=== PATIENT | female | born 1940 | race Caucasian/White ===

== ENCOUNTER 2017-08-04 12:48 | Outpatient (CLI) | payer MEDICARE, OTHER ==
--- NOTE | 2017-08-04 14:57 | XRAY Report ---
THREE VIEW RIGHT ELBOW: 08/04/2017 CLINICAL INDICATION: Trauma, pain. FINDINGS: AP, lateral, oblique views of the right elbow demonstrate no evidence of acute fracture or dislocation. Mild osteoarthritis is present. No effusion is seen. No foreign body is seen in the soft tissues. IMPRESSION: MILD OSTEOARTHRITIS. NO EVIDENCE OF FRACTURE. TD: 08/04/2017 14:56
--- NOTE | 2017-08-04 15:00 | XRAY Report ---
THREE VIEW LEFT ANKLE: 08/04/2017 CLINICAL INDICATION: Trauma, pain. FINDINGS: AP, lateral, oblique views of the left ankle demonstrate mild osteoarthritis. Plantar and posterior calcaneal spurring is present. There is no evidence of acute fracture. No effusion is seen. IMPRESSION: OSTEOARTHRITIS. NO EVIDENCE OF ACUTE FRACTURE. TD: 08/04/2017 14:59
== END 2017-08-04 12:49 | disposition home or self-care (01) ==
LOC: DI 12:48
PROVIDERS: ATTEND Nurse Practitioner Family
DX: S99.912A Unspecified injury of left ankle, initial encounter (principal); S59.901A Unspecified injury of right elbow, initial encounter; M19.021 Primary osteoarthritis, right elbow; M19.072 Primary osteoarthritis, left ankle and foot

== ENCOUNTER 2018-10-03 14:31 | Outpatient (CLI) | payer MEDICARE, OTHER ==
--- NOTE | 2018-10-03 15:41 | XRAY Report ---
Reason: PAIN OF RT SHOULDER, PAIN IN RT HIP, LOW BACK PAIN Procedure Date: 10/03/2018 Accession Number: [id number] / [id number] Procedure: XR - Lumbar Spine 2 View CPT Code: FULL RESULT: EXAM: LUMBOSACRAL SPINE RADIOGRAPHY EXAM DATE: 10/03/2018 03:01 PM. CLINICAL HISTORY: COMPARISONS: None. TECHNIQUE: 3 views. FINDINGS: Alignment: There is approximately 1 cm anterolisthesis of L5 on S1. There are approximately 0.4 cm of anterolisthesis of L4 on L5. Bones: Five aeb-ulc-vzwvowx lumbar vertebral bodies are present. Appearance suggestive of superior endplate fracture of T12. Disks: There is endplate sclerosis with disk osteophyte complex formation which is most pronounced at L1-L2 and L2-L3. Facets: Advanced facet arthropathy at L4 and L5, mild to moderate degenerative changes in the remaining lumbar spine. Sacroiliac Joints: Unremarkable. Soft Tissues: Normal. The visualized bowel gas pattern is normal. IMPRESSION: Anterolisthesis at L5-S1 and L4-L5 with suspected pars defects which are not directly visualized. Superior endplate fracture of T12. RADIA
--- NOTE | 2018-10-03 15:46 | XRAY Report ---
Reason: PAIN OF RT SHOULDER, PAIN IN RT HIP, LOW BACK PAIN Procedure Date: 10/03/2018 Accession Number: [id number] / [id number] Procedure: XR - Hip w/Pelvis 2-3V RT CPT Code: FULL RESULT: EXAM: RIGHT HIP RADIOGRAPHY EXAM DATE: 10/03/2018 03:01 PM. CLINICAL HISTORY: Chronic right hip pain for 6 months. No known injury. COMPARISON: None. TECHNIQUE: 2 views. FINDINGS: Bones: Normal. No fractures or bone lesion. Joints: There is moderate joint space narrowing of the femoroacetabular joint, symmetric when compared to the left. Degenerative changes are seen at the pubic symphysis. Sacroiliac joints are congruent. Soft Tissues: Normal. No soft tissue swelling. IMPRESSION: Degenerative hip disease, similar to the left side. RADIA
--- NOTE | 2018-10-03 15:46 | XRAY Report ---
Reason: RIGHT SHOULDER PAIN Procedure Date: 10/03/2018 Accession Number: [id number] / [id number] Procedure: XR - Shoulder 3 View RT CPT Code: FULL RESULT: EXAM: RIGHT SHOULDER RADIOGRAPHY EXAM DATE: 10/03/2018 03:01 PM. CLINICAL HISTORY: Right shoulder injury while working out at the gym 2 weeks ago. COMPARISON: None. TECHNIQUE: 3 views. FINDINGS: Bones: Normal. No fracture or bone lesion. Joints: There are moderate degenerative changes of the acromioclavicular joint. There is a similar degree of degenerative changes at the osseous glenoid. There is no dislocation. Soft tissues: Visualized thorax demonstrates a tortuous aorta. IMPRESSION: AC and glenohumeral joint degenerative changes. RADIA
== END 2018-10-03 14:32 | disposition home or self-care (01) ==
LOC: DI 14:31
PROVIDERS: ATTEND Physician Assistant
DX: M19.011 Primary osteoarthritis, right shoulder (principal); M43.16 Spondylolisthesis, lumbar region; M43.17 Spondylolisthesis, lumbosacral region; M51.86 Other intervertebral disc disorders, lumbar region; M47.9 Spondylosis, unspecified; M16.0 Bilateral primary osteoarthritis of hip
CPT/HCPCS: 72100

== ENCOUNTER 2018-10-10 12:19 | Emergency (ER) | payer MEDICARE, OTHER ==
--- NOTE | 2018-10-10 12:38 | ED Physician Documentation ---
PD HPI SYNCOPE - Stated complaint Stated Complaint: syncope/allergic rx - Chief complaint Chief Complaint: Allergic Rx - History obtained from History obtained from: Patient, Family - History of Present Illness Witnessed: Witnessed Timing - onset: How many minutes ago (30), Today Duration: Minutes (5) Preceding symptoms: Diaphoresis, Light headed, Generalized weakness, Other (she and were walking in park. She got stung (abrupt pain in thumb base dorsally) and noted onset of pain and some mild redness at site. They continued their walk and about 5-10 minutes later, she started to feel lightheaded and then faint. She then got sweaty, pale and her says she fainted. He helped her to the ground, so no fall/impact. He noted redness of thumb base, but not general redness/rash. He says patient seemed to stop breathing, so he gave rescue breaths. He checked pulse and it was still present. He was with her in [place] he wheeler and no passersby. He opted to stay with her few more minutes than to leave her to go for assistance, and she did awaken, and he was able to get her up and walk her slowly back to car and then he drove her here. She has some feeling of difficultly swallowing, but no noted oral edema.). No: Headache, Chest pain, Abdominal pain Contributing factors: Other (stung by bee in dorsal right thumb). No: Recent med change Injury occurred: No: Fell Review of Systems Constitutional: denies: Fever, Chills Nose: denies: Rhinorrhea / runny nose, Congestion Throat: denies: Sore throat (but feeling of tightness in throat) Cardiac: denies: Chest pain / pressure, Palpitations Respiratory: denies: Dyspnea, Cough GI: reports: Nausea. denies: Abdominal Pain, Vomiting, Diarrhea Skin: reports: Lesions (sting swelling dorsum right thumb base) Musculoskeletal: reports: Joint swelling Neurologic: reports: Generalized weakness, Syncope. denies: Difficulty speaking, Altered mental status, Headache, Head injury PD PAST MEDICAL HISTORY - Past Medical History Cardiovascular: None Respiratory: None Neuro: None Endocrine/Autoimmune: None - Present Medications Home Medications: Ambulatory Orders Medication Instructions Recorded Confirmed Cetirizine [ZyrTEC] 10 mg PO DAILY #10 tablet 10/10/18 Dexamethasone [Decadron] 4 mg PO DAILY #5 tablet 10/10/18 EPINEPHrine [Epinephrine] 0.3 mg IJ ONCE PRN #1 auto.injct 10/10/18 Famotidine 20 mg PO DAILY #10 tablet 10/10/18 - Allergies Allergies/Adverse Reactions: Allergies Allergy/AdvReac Type Severity Reaction Status Date / Time No Known Drug Allergies Allergy Verified 10/10/18 12:28 - Living Situation Living Situation: reports: With spouse/s.o. Living Arrangement: reports: At home - Social History Does the pt smoke?: No Does the pt drink ETOH?: No - Family History Family history: reports: Non contributory PD ED PE NORMAL - Vitals Vital signs reviewed: Yes - General General: Alert and oriented X 3, No acute distress, Well developed/nourished - HEENT HEENT: Ears normal, Moist mucous membranes, Pharynx benign - Neck Neck: Supple, no meningeal sign, No adenopathy - Cardiac Cardiac: RRR, No murmur - Respiratory Respiratory: No respiratory distress, Clear bilaterally - Abdomen Abdomen: Normal bowel sounds, Soft, Non tender, Non distended - Derm Derm: Warm and dry, Other (dorsum right thumb with redness and swelling, with lymphangitis streak running up hand/forearm to mid forearm level. No generalized rash. ) - Extremities Extremities: No tenderness to palpate, Normal ROM s pain, No edema, No calf tenderness / cord - Neuro Neuro: Alert and oriented X 3, No motor deficit, Normal speech Eye Opening: Spontaneous Motor: Obeys Commands Verbal: Oriented GCS Score: 15 - Psych Psych: Normal mood Results - Vitals Vitals: Vital Signs - 24 hr 10/10/18 10/10/18 12:23 13:52 Temperature 36.7 C Heart Rate 70 66 Respiratory 14 12 Rate Blood Pressure 142/82 H 135/74 H O2 Saturation 97 96 Oxygen O2 Source Room air - Labs Labs: Laboratory Tests 10/10/18 10/10/18 10/10/18 13:09 13:09 13:09 WBC 13.4 H RBC 5.15 Hgb 14.9 Hct 46.2 MCV 89.7 MCH 28.9 MCHC 32.2 RDW 13.7 Plt Count 191 MPV 7.9 Neut # (Auto) 11.3 H Lymph # (Auto) 1.2 L [place] # (Auto) 0.8 Eos # (Auto) 0.1 Baso # (Auto) 0.0 Absolute Nucleated RBC 0.00 Nucleated RBC % 0.0 Sodium 140 Potassium 3.6 Chloride 101 Carbon Dioxide 28 Anion Gap 11.0 BUN 13 Creatinine 0.7 Estimated GFR (MDRD) 81 L Glucose 138 H Calcium 8.6 Total Bilirubin 0.8 AST 22 ALT 18 Alkaline Phosphatase 49 Troponin I < 0.04 Total Protein 6.3 L Albumin 3.6 Globulin 2.7 Albumin/Globulin Ratio 1.3 Lipase 24 PD MEDICAL DECISION MAKING - ED course Complexity details: re-evaluated patient (still doing okay with just the local swelling dorsum thumb and some red streak proximal. 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 No worsening symptoms, so will discharge the patient.), considered differential, d/w patient, d/w family (spouse) Departure - Departure Disposition: 01 Home, Self Care Clinical Impression: Anaphylactic reaction Qualifiers: Encounter type: initial encounter Qualified Code(s): T78.2XXA - Anaphylactic shock, unspecified, initial encounter Condition: Stable Record reviewed to determine appropriate education?: Yes Instructions: ED Bite Sting Insect Gen Allergic React, ED Anaphylaxis General Follow-Up: Concepcion Peña PA [Primary Care Provider] - Prescriptions: Cetirizine [ZyrTEC] 10 mg PO DAILY #10 tablet Dexamethasone [Decadron] 4 mg PO DAILY #5 tablet EPINEPHrine [Epinephrine] 0.3 mg IJ ONCE PRN #1 auto.injct PRN Reason: Anaphylaxis Famotidine 20 mg PO DAILY #10 tablet Comments: Rest and stay cool today. Use the antihistamines famotidine and cetirizine daily for a week to 10 days. Decadron steroid daily for 5 days. The venom effect from bee stings often will linger for a few days and that is why we extend the treatments like that. Carry epinephrine self injector with you when you are outdoors or going for walks to be able to self treat if you have a similar reaction in the future. If you do need to use it, still be coming in for evaluation as the reaction can persist even after the epinephrine wears off. Discharge Date/Time: 10/10/18 13:55
[2018-10-10] MEDS ORDERED: CETIRIZINE 10 MG TABLET PO STA (13:01)
[2018-10-10] MEDS ORDERED: DEXAMETHASONE 10 MG/ML VIAL PO STA (13:01)
[2018-10-10] MEDS ORDERED: FAMOTIDINE 20 MG TABLET PO STA (13:01)
[2018-10-10] MEDS ORDERED: diphenhydrAMINE 25 MG CAPSULE PO STA (13:01)
[2018-10-10] MEDS ORDERED: CHERRY SYRUP 10 ML UDC PO ONE (13:01)
[2018-10-10 13:12] LABS: BASOPHILS % (AUTO) 0.2 %; EOSINOPHILS # (AUTO) 0.1 10^3/uL (0.0-0.7); EOSINOPHILS % (AUTO) 0.7 %; HGB - HEMOGLOBIN 14.9 g/dL (12.0-16.0); LYMPHOCYTES # (AUTO) 1.2 10^3/uL (1.5-3.5); LYMPHOCYTES % (AUTO) 9.2 %; MEAN CORPUSCULAR HEMOGLOBIN 28.9 pg (27.0-31.0); MEAN CORPUSCULAR HGB CONC 32.2 g/dL (32.0-36.0); MEAN CORPUSCULAR VOLUME 89.7 fL (81.0-99.0); MEAN PLATELET VOLUME 7.9 fL (7.9-10.8); MONOCYTES # (AUTO) 0.8 10^3/uL (0.0-1.0); MONOCYTES % (AUTO) 6.1 %; NEUTROPHILS # (AUTO) 11.3 10^3/uL (1.5-6.6); NEUTROPHILS % (AUTO) 83.8 %; PLT - PLATELET COUNT 191 10^3/uL (130-450); RED BLOOD COUNT 5.15 10^6/uL (4.20-5.40); RED CELL DISTRIBUTION WIDTH 13.7 % (12.0-15.0); WHITE BLOOD COUNT 13.4 x10^3/uL (4.8-10.8)
[2018-10-10 13:25] LABS: ALBUMIN 3.6 g/dL (3.2-5.5); ALBUMIN/GLOBULIN RATIO 1.3 (1.0-2.2); BILIRUBIN,TOTAL 0.8 mg/dL (0.2-1.0); CALCIUM 8.6 mg/dL (8.5-10.3); CREATININE 0.7 mg/dL (0.4-1.0); TOTAL PROTEIN 6.3 g/dL (6.7-8.2)
[2018-10-10 13:52] VITALS: BP 135/74
== END 2018-10-10 13:55 | disposition home or self-care (01) ==
LOC: ED 12:19
DX: T63.481A Toxic effect of venom of other arthropod, accidental (unintentional), initial encounter (principal); T78.2XXA Anaphylactic shock, unspecified, initial encounter; Y92.830 Public park as the place of occurrence of the external cause
CPT/HCPCS: 36415; 80053; 83690; 84484; 85025; 93005; 99283; A9270

== ENCOUNTER 2019-04-19 16:23 | Inpatient (IN) | payer MEDICARE, OTHER ==
--- NOTE | 2019-04-19 16:50 | ED Physician Documentation ---
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 Patient woke up this morning and noticed that her left leg was swollen from the level of the thigh all the way down to her ankle. She denies pain, states that when she bears weight on it she has some mild discomfort which is pressure-like. She did not hit the leg did not fall on it, has no history of blood clots, no recent long travel, no history of cancer, no chest pain or short ness of breath. She is not on any blood thinning medications. Review of Systems Constitutional: denies: Fever Cardiac: denies: Chest pain / pressure Respiratory: denies: Dyspnea GI: denies: Abdominal Pain Musculoskeletal: reports: Extremity swelling Neurologic: denies: Generalized weakness PD PAST MEDICAL HISTORY - Past Medical History Cardiovascular: None Respiratory: None Neuro: None Endocrine/Autoimmune: None GI: None WIRE SPLICER: None : None HEENT: None Psych: None Musculoskeletal: Osteoarthritis Derm: None - Past Surgical History Past Surgical History: Yes Ortho: Other /WIRE SPLICER: Tubal ligation - Present Medications Home Medications: Ambulatory Orders Medication Instructions Recorded Confirmed Cetirizine [ZyrTEC] 10 mg PO DAILY #10 tablet 10/10/18 04/21/19 EPINEPHrine [Epinephrine] 0.3 mg IJ ONCE PRN #1 auto.injct 10/10/18 04/21/19 Famotidine 20 mg PO DAILY #10 tablet 10/10/18 04/21/19 Atorvastatin Calcium 10 mg PO QPM 04/20/19 04/21/19 Methocarbamol [Robaxin] 1,000 mg PO QPM PRN 04/20/19 04/21/19 Apixaban [Eliquis] 10 mg PO BID #70 tablet 04/21/19 - Allergies Allergies/Adverse Reactions: Allergies Allergy/AdvReac Type Severity Reaction Status Date / Time No Known Drug Allergies Allergy Verified 04/19/19 16:33 - Social History Does the pt smoke?: No Smoking Status: Never smoker Does the pt drink ETOH?: No Does the pt have substance abuse?: No - Immunizations Immunizations are current?: Yes - POLST Patient has POLST: No PD ED PE NORMAL - Vitals Vital signs reviewed: Yes - General General: Alert and oriented X 3, No acute distress - HEENT HEENT: PERRL - Cardiac Cardiac: RRR, No murmur - Respiratory Respiratory: No respiratory distress - Derm Derm: Warm and dry - Extremities Extremities: Other (1-2+ edema of the left leg from the level of the forefoot to the mid thigh.Extremities are similar in temperature, slightly cool at the tips of the toes, but warm from the ankles up. There is a easily dopplerable DP and PT pulse on the left, and a palpable DP and PT pulse on the right. There is a superficial crust over the left rodriguez, but no surrounding erythema around this. Neurovascular intact with normal strength at the ankle as well as normal sensation over the entire) - Neuro Neuro: Alert and oriented X 3 - Psych Psych: Normal mood, Normal affect Results - Vitals Vitals: Oxygen O2 Source Room air - Labs Labs: Laboratory Tests 04/19/19 04/19/19 04/19/19 17:28 17:28 17:28 WBC 12.2 H RBC 5.30 Hgb 14.9 Hct 47.2 H MCV 89.1 MCH 28.1 MCHC 31.6 L RDW 13.7 Plt Count 164 MPV 9.5 Neut # (Auto) 8.1 H Lymph # (Auto) 2.7 [place] # (Auto) 1.0 Eos # (Auto) 0.3 Baso # (Auto) 0.0 Absolute Nucleated RBC 0.00 Nucleated RBC % 0.0 PT 12.5 INR 1.1 Sodium 139 Potassium 2.9 L Chloride 100 L Carbon Dioxide 29 Anion Gap 10.0 BUN 17 Creatinine 0.6 Estimated GFR (MDRD) 96 Glucose 116 H Lactic Acid Calcium 8.9 04/19/19 17:28 WBC RBC Hgb Hct MCV MCH MCHC RDW Plt Count MPV Neut # (Auto) Lymph # (Auto) [place] # (Auto) Eos # (Auto) Baso # (Auto) Absolute Nucleated RBC Nucleated RBC % PT INR Sodium Potassium Chloride Carbon Dioxide Anion Gap BUN Creatinine Estimated GFR (MDRD) Glucose Lactic Acid 0.9 Calcium PD MEDICAL DECISION MAKING - ED course ED course: DVT scan showed occlusive thrombus from the common femoral down to the popliteal on the left side. Lactate is normal, patient has easily dopplerable pulses, extremity is warm and has minimal pain, no signs of arterial compromise. I called and spoke with our hospitalist at 1830, is just prior to shift change, so I called back at [address] Grande, who stated with the extent of patient's thrombus she may need interventional radiology and felt that she should be transferred for specialist availability. Dyana Titus was paged around 1930. There were multiple hours of delay as they were unable to get in touch with vascular surgeon and then interventional radiologist, I did speak with interventional radiologist Dr. Sánchez at 2340, and reviewed the case with him. He states that patient can be continued on heparin, and we can obtain further imaging looking for iliofemoral extension, which can be done either by ultrasound or with a CT. He states that if there is iliofemoral extension that we should discuss the case with him or interventional radiology in the morning to determine whether catheter directed thrombolysis may be indicated, although patient's age is a relative contraindication for this. He stated that remaining on heparin overnight is appropriate, as given the acute duration of her symptoms we do not lose anything by a short delay and catheter directed thrombolysis even if it is indicated. He does not think she needs to be transferred immediately at this time. I spoke with Dr. Grande and discussed these recommendations. Pt was admitted for further imaging and work up. Departure - Departure Disposition: [facility] DC/[facility] Clinical Impression: Occlusive thrombus Condition: Stable Discharge Date/Time: 04/20/19 01:40
[2019-04-19 17:38] LABS: BASOPHILS % (AUTO) 0.2 %; EOSINOPHILS # (AUTO) 0.3 10^3/uL (0.0-0.7); EOSINOPHILS % (AUTO) 2.2 %; HGB - HEMOGLOBIN 14.9 g/dL (12.0-16.0); LYMPHOCYTES # (AUTO) 2.7 10^3/uL (1.5-3.5); LYMPHOCYTES % (AUTO) 22.4 %; MEAN CORPUSCULAR HEMOGLOBIN 28.1 pg (27.0-31.0); MEAN CORPUSCULAR HGB CONC 31.6 g/dL (32.0-36.0); MEAN CORPUSCULAR VOLUME 89.1 fL (81.0-99.0); MEAN PLATELET VOLUME 9.5 fL (7.9-10.8); NEUTROPHILS # (AUTO) 8.1 10^3/uL (1.5-6.6); NEUTROPHILS % (AUTO) 66.8 %; PLT - PLATELET COUNT 164 10^3/uL (130-450); RED CELL DISTRIBUTION WIDTH 13.7 % (12.0-15.0); WHITE BLOOD COUNT 12.2 x10^3/uL (4.8-10.8)
[2019-04-19 17:44] LABS: CALCIUM 8.9 mg/dL (8.5-10.3); CREATININE 0.6 mg/dL (0.4-1.0)
[2019-04-19 17:51] LABS: INR 1.1 (0.8-1.2); PT - PROTHROMBIN TIME 12.5 secs (9.9-12.6)
--- NOTE | 2019-04-19 18:01 | Ultrasound Report ---
Reason: swelling Procedure Date: 04/19/2019 Accession Number: [id number] / [id number] Procedure: US - Duplex Ext Veins Left CPT Code: Final Report FULL RESULT: EXAM: LEFT LOWER EXTREMITY VENOUS ULTRASOUND EXAM DATE: 04/19/2019 05:18 PM. CLINICAL HISTORY: Swelling. COMPARISON: None. TECHNIQUE: Real-time sonographic vascular imaging was performed by the powderman through the lower extremity utilizing both color-flow and Doppler spectral analysis. Multiple sales representative girls' apparel static images were saved for review. FINDINGS: Common Femoral Vein (CFV): Noncompressible. No significant Doppler flow. CFV-GSV Junction: Noncompressible. No significant Doppler flow. Profunda Femoral Vein (PFV): Normal. Femoral Vein (FV) Prox: Noncompressible. No significant Doppler flow. Femoral Vein (FV) Mid: Noncompressible. No significant Doppler flow.. Femoral Vein (FV) Dist: Noncompressible. No significant Doppler flow.. Popliteal Vein: Noncompressible. No significant Doppler flow.. Posterior Tibial Veins: Not well seen Peroneal Veins: Not well seen Other: None. IMPRESSION: Positive for extensive left lower extremity DVT. RADIA
[2019-04-19] MEDS ORDERED: HEPARIN 25000UNITS/500ML (D5W) 25,000 UNIT/500 ML BAG IV SCH (20:00)
[2019-04-19] MEDS ORDERED: METHOCARBAMOL 500 MG TABLET PO STA (20:48)
[2019-04-20] MEDS ORDERED: SODIUM CHLORIDE FLUSH 0.9% 10 ML SYRINGE IVP PRN (00:48)
[2019-04-20] MEDS ORDERED: LORazepam 0.5 MG TABLET PO STA (00:56)
[2019-04-20] MEDS ORDERED: HEPARIN 25000UNITS/500ML (D5W) 25,000 UNIT/500 ML BAG IV SCH (01:00)
--- NOTE | 2019-04-20 01:17 | HISTORY & PHYSICAL EXAMINATION ---
Chief Complaint - Chief Complaint Chief Complaint: left leg swelling History of Present Illness - Admitted From Admitted From:: [facility] ED - History Obtained From Records Reviewed: yes History obtained from: patient - History of Present Illness HPI Comment/Other: Patient is an 79 y/o female who presented to the ED with complain of left leg sw elling which she noticed when she woke up this morning and tried to put on her pants and socks. She denied any pain in the leg. She denies any recent trauma. She travelled through out the month of December and returned home in January. She has been experiencing significant lower back pain and as a result has not been ambulating much. She denied any previous occurrence of similar symptoms. She denied chest pain, dyspnea, abdominal pain, fever or chills. The leg is warm to touch and non-pitting. In the ED work up included doppler of the lower extremity which showed extensive DVT in the left leg. The patient was initially presented for admission and I recommended that an IR or vascular consult be made because she may need intervention thus transfer to another facility. Dr Alba with IR at [facility] in [place] was contacted and he gave the following recommendation: "he states that patient can be continued on heparin, and we can obtain further imaging looking for iliofemoral extension, which can be done either by ultrasound or with a CT. He states that if there is iliofemoral extension that we should discuss the case with him or interventional radiology in the morning to determine whether catheter directed thrombolysis may be indicated, although patient's age is a relative contraindication for this. He stated that remaining on heparin overnight is appropriate, as given the acute duration of her symptoms we do not lose anything by a short delay and catheter directed thrombolysis even if it is indicated. He does not think she needs to be transferred immediately at this time." As a result the patient was presented for admission. History - Past Medical History Cardiovascular: reports: Hypertension, High cholesterol Respiratory: reports: None Neuro: reports: None Endocrine/Autoimmune: reports: None GI: reports: None MELTING OPERATOR: reports: None : reports: None HEENT: reports: None Psych: reports: None Musculoskeletal: reports: Osteoarthritis Derm: reports: None, Other (Seasonal Allergies) MRSA Hx?: No - Past Surgical History Ortho: reports: Other (left knee surgery) /MELTING OPERATOR: reports: Tubal ligation, Other (left breast lumpectomy) - Family & Social History Family History: Mother: , Cancer (NHL), Father: , [place] Family History Comment/Other: brother: Alzheimer's. sister: back pain Social History Notes: She lives at home with her . She denies tobacco use. She rarely drinks alcohol. She denies illicit drug use. She uses CBD oils. She is a retired psychatrist - POLST Patient has POLST: No Meds/Allgy - Home Medications Home Medications: Ambulatory Orders Medication Instructions Recorded Confirmed Cetirizine [ZyrTEC] 10 mg PO DAILY #10 tablet 10/10/18 EPINEPHrine [Epinephrine] 0.3 mg IJ ONCE PRN #1 auto.injct 10/10/18 Famotidine 20 mg PO DAILY #10 tablet 10/10/18 dexAMETHasone [Decadron] 4 mg PO DAILY #5 tablet 10/10/18 - Allergies Allergies/Adverse Reactions: Allergies Allergy/AdvReac Type Severity Reaction Status Date / Time No Known Drug Allergies Allergy Verified 04/19/19 16:33 Review of Systems - Constitutional Constitutional: denies: Fatigue, Fever, Chills - Eyes Eyes: denies: Pain, Dipolpia - Ears, Nose & Throat Ears, Nose & Throat: denies: Tinnitus, Sore throat, Hoarseness - Cardiovascular Cariovascular: denies: Irregular heart rate, Palpitations, Chest pain, Lighthead edness, Syncope - Respiratory Respiratory: denies: Cough, Sputum production, Wheezing, Snoring, Hemoptysis, SOB at rest, SOB with exertion - Gastrointestinal Gastrointestinal: denies: Abdominal pain, Abdominal distention, Constipation, Diarrhea, Black stools, Nausea, Vomiting, Coffee grounds emesis, Reflux/heartburn - Genitourinary Genitourinary: denies: Dysuria, Frequency, Urgency, Hematuria - Musculoskeletal Musculoskeletal: reports: Back pain. denies: Muscle pain - Integumentary Integumentary: denies: Rash, Pruritis, Lesions - Neurological Neurological: denies: General weakness, Focal weakness, Headache, Dizziness - Psychiatric Psychiatric: denies: Depression, Anxiety - Endocrine Endocrine: denies: Polyuria, Polydypsia - Hematologic/Lymphatic Hematologic/Lymphatic: reports: Blood clots. denies: Anemia, Bruising Prior Level of Functionality: She is independent of activities of daily living. Up until Spring 2018 she used to walk 10,000 steps a day however her back pain from osteoarthritis and gotten progressively worse to the the point where she is mainly sedentary. Exam - Vital Signs Vital Signs: Vital Signs x48h Temp Pulse Resp BP Pulse Ox 04/20/19 01:04 85 17 148/83 H 94 04/20/19 00:00 83 12 114/66 96 04/19/19 22:00 79 14 123/66 97 04/19/19 20:14 36.8 C 85 18 146/90 H 97 04/19/19 18:52 36.7 C 78 16 138/89 H 97 - Physical Exam General Appearance: positive: Alert, Moderate distress (back pain) Eyes Bilateral: positive: Normal inspection, PERRL, EOMI ENT: positive: ENT inspection nml, Pharynx nml, No signs of dehydration Neck: positive: Nml inspection, No JVD, Trachea midline Respiratory: positive: Chest non-tender, No respiratory distress, Breath sounds nml. negative: Wheezes, Rales Cardiovascular: positive: Regular rate & rhythm, No murmur, No gallop Abdomen: positive: Non-tender, No organomegaly, Nml bowel sounds, No distention. negative: Guarding, Rebound Back: positive: Nml inspection, Other (significant pain) Skin: positive: Color nml, No rash, Warm Extremities: positive: Non-tender, Other (left leg swollen. Non-pitting) Neurologic/Psychiatric: positive: Oriented x3, CN's nml (2-12), Motor nml, Sensation nml, Mood/affect nml Conclusion/Plan - Problem List (1) Lower leg DVT (deep venous thromboembolism), acute Conclusion/Plan: Extensive Likely decreased mobility lately due to worsening back pain. Patient started on heparin gtt per DVT protocol Dr Alba (interventional radiology) at [facility] was contacted and he gave the following recommendation: "He states that patient can be continued on heparin, and we can obtain further imaging looking for iliofemoral extension, which can be done either by ultrasound or with a CT. He states that if there is iliofemoral extension that we should discuss the case with him or interventional radiology in the morning to determine whether catheter directed thrombolysis may be indicated, although patient's age is a relative contraindication for this. He stated that remaining on heparin overnight is appropriate, as given the acute duration of her symptoms we do not lose anything by a short delay and catheter directed thrombolysis even if it is indicated. He does not think she needs to be transferred immediately at this time. I spoke with Dr. Grande and discussed these recommendations." Qualifiers: Laterality: left Qualified Code(s): I82.4Z2 - Acute embolism and thrombosis of unspecified deep veins of left distal lower extremity (2) Hypokalemia Conclusion/Plan: Will replace and recheck. Will also recheck Magnesium Will hold HCTZ for now (3) Back pain Conclusion/Plan: 2/2 osteoarthritis Limiting patient's activities. She has become very sedentary due to pain. Patient was supposed to have surgery in 1 month. [place] ordered prn (4) Hypertension Conclusion/Plan: Hold HCTZ for now. Will order labetalol prn if SBP> 160 (5) Hyperlipemia Conclusion/Plan: Will resume patient's statin once verified - Lab Results Fish Bones: 04/19/19 17:28 04/19/19 17:28 Core Measures - Anticipated LOS I expect patient to be DC'd or transferred within 96 hours.: Yes - DVT/VTE - Prophylaxis VTE/DVT Device ordered at admit?: Yes VTE/DVT Prophylaxis med ordered at admit?: Yes
[2019-04-20] MEDS ORDERED: POTASSIUM CHLORIDE 20 MEQ TABLET PO ONE (02:01)
[2019-04-20] MEDS: HYDROcod/ACETAM 5/325 MG TABLET PO PRN ×3 (03:07→20:54)
[2019-04-20 03:08] LABS: BASOPHILS % (AUTO) 0.3 %; EOSINOPHILS # (AUTO) 0.3 10^3/uL (0.0-0.7); EOSINOPHILS % (AUTO) 2.2 %; HGB - HEMOGLOBIN 13.9 g/dL (12.0-16.0); LYMPHOCYTES # (AUTO) 2.4 10^3/uL (1.5-3.5); LYMPHOCYTES % (AUTO) 20.4 %; MEAN CORPUSCULAR HEMOGLOBIN 28.9 pg (27.0-31.0); MEAN CORPUSCULAR HGB CONC 32.3 g/dL (32.0-36.0); MEAN CORPUSCULAR VOLUME 89.4 fL (81.0-99.0); MONOCYTES # (AUTO) 0.9 10^3/uL (0.0-1.0); MONOCYTES % (AUTO) 7.7 %; NEUTROPHILS # (AUTO) 8.2 10^3/uL (1.5-6.6); NEUTROPHILS % (AUTO) 69.1 %; PLT - PLATELET COUNT 151 10^3/uL (130-450); RED BLOOD COUNT 4.81 10^6/uL (4.20-5.40); RED CELL DISTRIBUTION WIDTH 13.5 % (12.0-15.0); WHITE BLOOD COUNT 11.8 x10^3/uL (4.8-10.8)
[2019-04-20] MEDS: SODIUM CHLORIDE 0.9% 1,000 ML IV SCH ×3 (03:08→22:55)
[2019-04-20] MEDS: SODIUM CHLORIDE FLUSH 0.9% 10 ML SYRINGE IVP SCH ×4 (03:12→23:55)
[2019-04-20 03:17] LABS: CALCIUM 8.2 mg/dL (8.5-10.3); CREATININE 0.7 mg/dL (0.4-1.0)
[2019-04-20] MEDS ORDERED: IOVERSOL 320 100 ML VIAL IVP ONE ×2 (03:34→04:25)
--- NOTE | 2019-04-20 04:42 | CT Report ---
Reason: left lower ext dvt, extensice, ?Iliofemoral extens Procedure Date: 04/20/2019 Accession Number: [id number] / [id number] Procedure: CT - Abdomen/Pelvis W CPT Code: Final Report FULL RESULT: EXAM: CT ABDOMEN AND PELVIS EXAM DATE: 04/20/2019 04:16 AM CLINICAL HISTORY: Left lower extremity deep vein thrombosis, extensive, ? iliofemoral extension. COMPARISONS: DUPLEX EXT VEINS LEFT 04/19/2019 4:54 PM. TECHNIQUE: Routine helical CT imaging was performed through the abdomen and pelvis. IV contrast: Yes. Enteric contrast: No. Reconstructions: Coronal and sagittal. In accordance with CT protocol optimization, one or more of the following dose reduction techniques were utilized for this exam: automated exposure control, adjustment of mA and/or KV based on patient size, or use of iterative reconstructive technique. FINDINGS: Lung Bases: Bilateral lower lobe pulmonary emboli, right larger than left. No CT evidence of right heart strain. Right lung base calcified granuloma. No effusion. Liver: Small right liver cyst. No suspicious masses. Gallbladder/Bile Ducts: Unremarkable. Spleen: Unremarkable. Pancreas: Unremarkable. Adrenal Glands: Unremarkable. Kidneys: Small left renal cyst. No suspicious masses or hydronephrosis. Peritoneal Cavity/Bowel: Colonic diverticulosis. No bowel obstruction or inflammatory process seen. No free air or significant free fluid. No masses or adenopathy. The appendix is normal. No excessive stool burden. Pelvic Organs: Bladder, uterus, and adnexa appear unremarkable. Vasculature: Known left lower extremity DVT extends throughout the iliac venous system and slightly into the caudal aspect of the IVC. Right iliac venous system appears clear. Moderate atherosclerotic disease of the aorta and branches. No aneurysm seen. Bones: No acute or aggressive appearing abnormality seen. Moderate degenerative changes in lumbar spine. Degenerative mild anterolisthesis of L4 on L5 and L5 on S1. Mild superior endplate compression deformity of T12 appears chronic. Other: None. IMPRESSION: 1. Known left lower extremity DVT extends throughout the iliac venous system and slightly into the caudal aspect of the IVC. Bilateral lower lobe pulmonary emboli also present without CT evidence of right heart strain. 2. Colonic diverticulosis. 3. Moderate atherosclerotic disease of the aorta and branches. RADIA The critical result notification system was initiated by Dr. Nicolas Pruitt at 04:35 AM on 04/20/2019. The above critical result findings [facility] Nicolas Pruitt at 04:41 AM on 04/20/2019.
[2019-04-20] MEDS: PANTOPRAZOLE 40 MG TABLET PO SCH (08:07)
--- NOTE | 2019-04-20 17:37 | PROVIDER PROGRESS NOTE ---
Hospitalist Cross-cover Note - Cross-Cover Note Cross-Cover Note: I reached out to the IR on-call at [facility] and discussed the case, with the additional results of the CT abdomen that evaluated the extent of clot. He advised no intervention like IVC filter or thrombolysis. No transfer needed. The results of the CT abdomen and Echo were then discussed with the pt, her at bedside and by phone with the son who is an ER doctor at [facility]. I also called the [employer] line at and discussed the case, and all imaging studies, to get recommendations from a family support specialist. I spoke to Dr Cammy Del Rio, she heard the case, then called me back after she discussed it with another Pulmonary colleague and also reviewed and discussed the case with the Chairmen of the Division of Pulmonary at , Dr Nabil Fitch. The advice was to continue with the iv Heparin, change to oral anticoagulant, no transfer for higher level of care needed with normal VS, no recommendation to place an IVC filter since the approach would have to be from the SVC and would not ensure no clot dislodgment, and no thrombolysis since that would give excessive risk for brain hemorrhage despite decreasing clot burden. I went back to see the patient at 6pm: systolic BP 112, HR 80 in sinus rhythm, no resp distress, Lungs have crackles in L base, heart has a 1/6 systolic murmur, Extremities have normal color and normal temp of the L leg with mild swelling. I discussed the recommendations of the 3 Pulmonologists at with the pt, usband at bedside and then by phone with the son who is a doctor. They all understood and agree with the plan. Imp: DVT with very large clot burden (from lower leg into lower IVC) Bilateral PE's Underfilling of the L heart with a "soft" BP noted. Chronic low back pain. Hx of HTN Hypokalemia, from HCTZ use, likely. Plan: Start Eliquis 10 mg po bid, stop the iv Heparin when the first Eliquis is dosed. Leg elevation. Monitor for bleeding. No further use of HCTZ. Replace Potassium and monitor serum K level. Possible discharge home tomorrow, if no complications or bleeding develop. She will need Pulmonary F/U to determine the duration of anticoagulant treatment. CRITICAL CARE TIME SPENT: 60 min.
[2019-04-20] MEDS: APIXABAN 5 MG TABLET PO SCH (20:55)
[2019-04-21 04:53] LABS: BASOPHILS % (AUTO) 0.2 %; EOSINOPHILS # (AUTO) 0.3 10^3/uL (0.0-0.7); EOSINOPHILS % (AUTO) 3.5 %; HGB - HEMOGLOBIN 11.8 g/dL (12.0-16.0); LYMPHOCYTES # (AUTO) 2.4 10^3/uL (1.5-3.5); LYMPHOCYTES % (AUTO) 24.9 %; MEAN CORPUSCULAR HEMOGLOBIN 28.7 pg (27.0-31.0); MEAN CORPUSCULAR HGB CONC 31.6 g/dL (32.0-36.0); MEAN CORPUSCULAR VOLUME 90.8 fL (81.0-99.0); MEAN PLATELET VOLUME 9.9 fL (7.9-10.8); MONOCYTES # (AUTO) 0.9 10^3/uL (0.0-1.0); MONOCYTES % (AUTO) 9.2 %; NEUTROPHILS # (AUTO) 5.9 10^3/uL (1.5-6.6); NEUTROPHILS % (AUTO) 61.8 %; PLT - PLATELET COUNT 143 10^3/uL (130-450); RED BLOOD COUNT 4.11 10^6/uL (4.20-5.40); RED CELL DISTRIBUTION WIDTH 13.8 % (12.0-15.0); WHITE BLOOD COUNT 9.6 x10^3/uL (4.8-10.8)
[2019-04-21 05:04] LABS: CALCIUM 7.8 mg/dL (8.5-10.3); CREATININE 0.5 mg/dL (0.4-1.0)
[2019-04-21] MEDS: PANTOPRAZOLE 40 MG TABLET PO SCH (06:52)
[2019-04-21] MEDS ORDERED: POTASSIUM CHLORIDE 20 MEQ TABLET PO SCH (06:58)
[2019-04-21] MEDS: HYDROcod/ACETAM 5/325 MG TABLET PO PRN (08:49)
[2019-04-21] MEDS ORDERED: POLYETHYLENE GLYCOL 3350 17 GM PACKET PO SCH (09:00)
[2019-04-21] MEDS: APIXABAN 5 MG TABLET PO SCH (10:18)
[2019-04-21] MEDS: SODIUM CHLORIDE FLUSH 0.9% 10 ML SYRINGE IVP SCH (10:19)
[2019-04-21 11:30] VITALS: BP 120/64
--- NOTE | 2019-04-21 11:34 | Discharge Plan ---
Discharge Plan Problem Reviewed?: Yes Disposition: Home, Self Care Condition: Stable Prescriptions: Apixaban [Eliquis] 10 mg PO BID #70 tablet Diet: Regular Activity Restrictions: Activity as Tolerated Shower Restrictions: No Driving Restrictions: No Instruction Topics: DVT Complications, DVT Tx Health Concerns: Admitted with a large DVT and found to have pulmonary emboli. Low Potassium from HCTZ use, was replaced. Plan of Treatment: The networking specialist was contacted: Dr Cammy Del Rio heard the case, then called back after she discussed it with another Pulmonary colleague and also reviewed and discussed the case with the Chairmen of the Division of Pulmonary at , Dr Nabil Fitch. The advice was to transition the iv Heaprin to oral anticoagulant, and no transfer for higher level of care needed at this point. Continue the blood thinner for 3 months (minimum). A prescription for the first month has been sent to your pharmacy. See your PCP for hospital follow-up and a possible referral to a Single Fold Machine Operator and for med refills. Stop taking the daily aspirin and avoid non-steroidal anti-inflammatory agents. Your BP no longer requires the HCTZ use; stop the HCTZ and Potassium replacements. Stay well hydrated. If you develop severe bleeding, worsening leg swelling, bluish discoloration or pain in the left leg, worsening shortness of breath, or lightheadedness, seek immediate advice from your PCP and/or specialist, or come to the closest ER. Care Goals: Continue anticoagulation, and you need follow-up with your PCP and a networking specialist should be considered. Assessment: The patient is agreeable with the plan. No Smoking: If you smoke, Please STOP! Call for help. Follow-up with: Concepcion Peña PA [Primary Care Provider] -
--- NOTE | 2019-04-21 11:55 | DISCHARGE SUMMARY ---
Discharge Summary Admit Date: 04/20/19 Discharge Date: 04/21/19 Discharging Provider: Dr Gladis Wood Primary Care Provider: Concepcion Peña Code Status: Attempt Resuscitation Condition at Discharge: Stable Discharge Disposition: 01 Home, Self Care - DIAGNOSES Admission Diagnoses: 1) Lower leg DVT, acute (2) Hypokalemia (3) Back pain (4) Hypertension (5) Hyperlipemia Discharge Diagnoses with Status of Each Condition: See below - HPI History of Present Illness: From the admission H&P of Dr Bennie Grande: Patient is an 79 y/o female who presented to the ED with complain of left leg swelling which she noticed when she woke up this morning and tried to put on her pants and socks. She denied any pain in the leg. She denies any recent trauma. She travelled through out the month of December and returned home in January. She has been experiencing significant lower back pain and as a result has not been ambulating much. She denied any previous occurrence of similar symptoms. She denied chest pain, dyspnea, abdominal pain, fever or chills. The leg is warm to touch and non-pitting. In the ED work up included doppler of the lower extremity which showed extensive DVT in the left leg. The patient was initially presented for admission and I recommended that an IR or vascular consult be made because she may need intervention thus transfer to another facility. Dr Alba with IR at [place] in [place] was contacted and he gave the following recommendation: "he states that patient can be continued on heparin, and we can obtain further imaging looking for iliofemoral extension, which can be done either by ultrasound or with a CT. He states that if there is iliofemoral extension that we should discuss the case with him or interventional radiology in the morning to determine whether catheter directed thrombolysis may be indicated, although patient's age is a relative contraindication for this. He stated that remaining on heparin overnight is appropriate, as given the acute duration of her symptoms we do not lose anything by a short delay and catheter directed thrombolysis even if it is indicated. He does not think she needs to be transferred immediately at this time." As a result the patient was presented for admission. - CONSULTS | PROCEDURES Consultations: Phone coversations (see below) - HOSPITAL COURSE Hospital Course: 1) DVT of L lower extremity, with very large clot burden (extends into lower IVC) The additional results of the CT abdomen that evaluated the extent of clot was discussed with the IR on-call at [facility]. He advised no intervention like IVC filter or thrombolysis and no transfer needed. I also called the [employer] line at and discussed the case with art specialist, Dr Cammy Del Rio, who heard the case and imaging study results, to get recommendations from a art specialist. She called back after she discussed it with another Pulmonary colleague and also reviewed and discussed the case with the Chairmen of the Division of Pulmonary at , Dr Nabil Fitch. The advice was to continue with the iv Heparin, change to oral anticoagulant, no transfer for higher level of care needed with normal VS, no recommendation to place an IVC filter since the approach would have to be from the SVC and would not ensure no clot dislodgment, and no thrombolysis since that would give excessive risk for brain hemorrhage at this advanced age, despite decreasing clot burden. I discussed the recommendations of the 3 Pulmonologists at with the patient, the at bedside and then by phone with the son who is an ER doctor. They all understood and agree with the plan. She was started on Eliquis 10 mg bid and discharged on this with recommendations for PCP follow-up. 2) Bilateral PE's As above 3) Chronic low back pain. [place] prn was ordered 4) IHSS, by Echo An Echo was done to evaluate for Right heart strain. There was no RV dilation or pulmonary HTN found, but IHSS was found: the LV had a sigmoid shaped septum with no outflow tract obstruction (no gradient present) at rest, but a severe incr ease in dynamic LV outflow tract obstruction during Valsalva maneuver to 95 mmHg. This is consistent with diminished venous return and cardiac underfilling. For this reason, her HCTZ was discontinued. The patient had a set of orthostatic VS checked before discharge and they were normal. 5) Hx of HTN Her HCTZ was stopped since she had "soft" BP, likely related to underfilling of the heart. She was discharged on no anti-hypertensive meds. 6) Hypokalemia This was likely from HCTZ use. It was replaced. - ALLERGIES Allergies/Adverse Reactions: Allergies Allergy/AdvReac Type Severity Reaction Status Date / Time No Known Drug Allergies Allergy Verified 04/19/19 16:33 - MEDICATIONS Home Medications: Ambulatory Orders Medication Instructions Recorded Confirmed Cetirizine [ZyrTEC] 10 mg PO DAILY #10 tablet 10/10/18 04/21/19 EPINEPHrine [Epinephrine] 0.3 mg IJ ONCE PRN #1 auto.injct 10/10/18 04/21/19 Famotidine 20 mg PO DAILY #10 tablet 10/10/18 04/21/19 Atorvastatin Calcium 10 mg PO QPM 04/20/19 04/21/19 Methocarbamol [Robaxin] 1,000 mg PO QPM PRN 04/20/19 04/21/19 Apixaban [Eliquis] 10 mg PO BID #70 tablet 04/21/19 - PHYSICAL EXAM AT DISCHARGE General Appearance: positive: No acute distress, Alert Eyes Bilateral: positive: Normal inspection, PERRL ENT: positive: ENT inspection nml Neck: positive: No JVD Respiratory: positive: No respiratory distress, Other (L base crackles) Cardiovascular: positive: Regular rate & rhythm, No murmur Abdomen: positive: Non-tender, No distention Extremities: positive: Non-tender, Other (L lower leg mildly swollen) Neurologic/Psychiatric: positive: Oriented x3, Other (Grossly intact) - LABS Result Diagrams: 04/21/19 04:35 04/21/19 04:35 - DIAGNOSTIC IMAGING Diagnostic Imaging Results: Final report reviewed, Discussed with radiologist - FOLLOW UP Follow Up: See PCP in 5-7 days. - TIME SPENT Time Spent in Discharge (Minutes): 60
== END 2019-04-21 12:52 | disposition home or self-care (01) | DRG 299 ==
LOC: ED 16:23 → MS3 04-20 00:48
PROVIDERS: ADMIT Internal Medicine; ATTEND Internal Medicine
DX: I82.412 Acute embolism and thrombosis of left femoral vein (principal); I82.422 Acute embolism and thrombosis of left iliac vein; I26.99 Other pulmonary embolism without acute cor pulmonale; I82.220 Acute embolism and thrombosis of inferior vena cava; E87.6 Hypokalemia; T50.2X5A Adverse effect of carbonic-anhydrase inhibitors, benzothiadiazides and other diuretics, initial encounter; G89.29 Other chronic pain; I51.89 Other ill-defined heart diseases; E78.5 Hyperlipidemia, unspecified; M19.90 Unspecified osteoarthritis, unspecified site; Z79.52 Long term (current) use of systemic steroids; Z86.79 Personal history of other diseases of the circulatory system
CPT/HCPCS: 36415; 74177; 80048; 82272; 83605; 85025; 85520; 85610; 93306; 93971; 96374; 99283; 99285; A9270; Q9967; 85027

== ENCOUNTER 2019-07-03 12:15 | Outpatient (CLI) | payer MEDICARE, OTHER ==
--- NOTE | 2019-07-03 15:23 | Ultrasound Report ---
Reason: DVT OF LOWER EXTREMITY Procedure Date: 07/03/2019 Accession Number: [id number] / [id number] Procedure: US - Duplex Ext Veins Left CPT Code: Final Report FULL RESULT: EXAM: LEFT LOWER EXTREMITY VENOUS ULTRASOUND EXAM DATE: 07/03/2019 01:21 PM. CLINICAL HISTORY: DVT OF LOWER EXTREMITY. COMPARISON: DUPLEX EXT VEINS LEFT 04/19/2019 4:54 PM. TECHNIQUE: Real-time sonographic vascular imaging was performed by the diamond selector through the lower extremity utilizing both color-flow and Doppler spectral analysis. Multiple customer operations representative static images were saved for review. FINDINGS: Common Femoral Vein (CFV): Normal. CFV-GSV Junction: Normal. Profunda Femoral Vein (PFV): Normal. Femoral Vein (FV) Prox: Normal. Femoral Vein (FV) Mid: Normal. Femoral Vein (FV) Dist: Normal. Popliteal Vein: Normal. Posterior Tibial Veins: Normal. Peroneal Veins: Normal. Contralateral Side CFV: Normal. Other: None. IMPRESSION: No evidence for deep venous thrombosis. RADIA
== END 2019-07-03 12:16 | disposition home or self-care (01) ==
LOC: DI 12:15
PROVIDERS: ATTEND Physician Assistant
DX: Z09 Encounter for follow-up examination after completed treatment for conditions other than malignant neoplasm (principal); Z86.718 Personal history of other venous thrombosis and embolism

== ENCOUNTER 2020-08-01 10:36 | Outpatient (CLI) | payer MEDICARE, OTHER ==
[2020-08-01] MEDS ORDERED: IOVERSOL 320 100 ML VIAL IVP ONE ×2 (10:59→13:16)
[2020-08-01 11:08] LABS: CREATININE 0.7 mg/dL (0.4-1.0)
--- NOTE | 2020-08-01 12:40 | CT Report ---
PROCEDURE: CHEST W INDICATIONS: SOLITARY NODULE OF LUNG CONTRAST: IV CONTRAST: Optiray 320 ml: 100 PO CONTRAST: *NO PO CONTRAST TECHNIQUE: After the administration of intravenous contrast, 5 mm thick sections acquired from the pulmonary api mery to the posterior costophrenic angles. 7 mm thick coronal MIP reformats were acquired. For radia tion dose reduction, the following was used: automated exposure control, adjustment of mA and/or kV according to patient size. COMPARISON: CT abdomen/pelvis 04/20/2019 FINDINGS: Image quality: Excellent. Lungs and pleura: An 8 x 6 mm solid nodule is seen in the posterior lateral aspect of the left upper lobe (images 85-90 of series 4) with a few small satellite nodules. A benign densely calcified granu tyrell is seen in the right lower lobe. No acute air space opacities. No pleural effusions or pneumoth orax. Central and peripheral airways are patent and normal in caliber. Mediastinum: Heart size is normal. No pericardial effusion. No mediastinal or hilar adenopathy by size criteria. Thoracic aorta and central pulmonary arteries are normal in size. Esophagus is roly l in caliber. No hiatal hernia. Bones and chest wall: No suspicious bony lesions. Superior endplate depression of the T12 vertebra d oes not appear significantly changed when compared to the CT from 04/20/2019. Mild degenerative oliva es are seen in the spine. No axillary or supraclavicular adenopathy by size criteria. Thyroid gland contains a nonspecific 5 mm nodule in the left thyroid lobe, which requires no dedicated imaging foll ow-up based on ACR guidelines.. Abdomen: A 2.5 x 1.6 cm low-density lesion in the right hepatic lobe is most likely a benign cyst. A few diverticula are seen in the included portion of the colon. Visualized upper abdominal solid orga ns otherwise appear normal. Upper abdominal bowel loops are normal in caliber. IMPRESSION: Left upper lobe solid pulmonary nodule measures 7 mm in average diameter with a few small satellite n odules. Recommend follow-up CT chest in 6-12 months and possible additional follow-up at 18-24 months based on Fleischner Society guidelines. Reviewed by: Riley Orozco MD on 08/01/2020 12:38 PM PST Approved by: Riley Orozco MD on 08/01/2020 12:38 PM PST Station ID: [id number]
== END 2020-08-01 10:37 | disposition home or self-care (01) ==
LOC: LAB 10:36
PROVIDERS: ATTEND Registered Nurse
DX: R91.1 Solitary pulmonary nodule (principal); R91.8 Other nonspecific abnormal finding of lung field
CPT/HCPCS: 36415; 71260; 82565; Q9967

== ENCOUNTER 2021-01-30 13:26 | Outpatient (CLI) | payer MEDICARE, OTHER ==
--- NOTE | 2021-01-30 14:13 | CT Report ---
PROCEDURE: CHEST WO INDICATIONS: SOLITARY NODULE OF LUNG TECHNIQUE: Noncontrast images were acquired from the pulmonary apices to the posterior costophrenic angles. Mul tiplanar MIP reformats were then acquired. For radiation dose reduction, the following was used: au tomated exposure control, adjustment of mA and/or kV according to patient size. COMPARISON: 08/01/2020 FINDINGS: Image quality: Excellent. Lungs and pleura: An 8 x 6 mm solid nodule in the posterior lateral aspect of the left upper lobe se jeronimo 4 image 73 is unchanged compared to the prior CT on 08/01/2020. A calcified granuloma in the right lower lobe is unchanged. No new nodules identified. No acute air space opacities. No pleural effusi ons or pneumothorax. Central and peripheral airways are patent and normal in caliber. Mediastinum: Heart size is normal. The coronary arteries have atherosclerotic calcifications. No pe ricardial effusion. No mediastinal adenopathy by size criteria. Thoracic aorta and central pulmonar y arteries are normal in size. Esophagus is normal in caliber. No hiatal hernia. Bones and chest wall: No suspicious bony lesions. No vertebral body compression fractures. No axil lorenzo or supraclavicular adenopathy by size criteria. The thyroid is normal in size and there are no incidental findings. Abdomen: Visualized upper abdominal solid organs and bowel loops appear normal in the absence of con trast. A 2.7 x 1.8 cm hypodensity in the right lobe of the liver is unchanged. IMPRESSION: 1. Left upper lobe solid pulmonary nodule is unchanged compared to the prior CT on 08/01/2020 demonstra ting 7 month stability. Recommend follow-up CT in one year to demonstrate long-term stability. 2. No acute abnormality of the chest. Reviewed by: Benjy Yoder on 01/30/2021 2:12 PM PDT Approved by: Benjy Yoder on 01/30/2021 2:12 PM PDT Station ID: [id number]
== END 2021-01-30 13:27 | disposition home or self-care (01) ==
LOC: DI 13:26
PROVIDERS: ATTEND Registered Nurse
DX: R91.1 Solitary pulmonary nodule (principal)

== ENCOUNTER 2021-03-13 12:28 | Outpatient (CLI) | payer MEDICARE, OTHER ==
--- NOTE | 2021-03-13 16:28 | Ultrasound Report ---
PROCEDURE: Head or Neck Soft Tissue INDICATIONS: MASS/LUMP LT ANTERIOR NECK TECHNIQUE: Real time scanning was performed of the neck region of interest, with image documentation . COMPARISON: None. FINDINGS: No soft tissue neck abnormality is identified at area of palpable concern. There is incide ntal note of a thyroid cyst on the left measuring 7 x 4 x 7 mm. IMPRESSION: No abnormality at the area of palpable concern. Incidental note of left thyroid cyst. Reviewed by: Melita Jacobson MD on 03/13/2021 4:27 PM PDT Approved by: Melita Jacobson MD on 03/13/2021 4:27 PM PDT Station ID: [id number]
== END 2021-03-13 12:29 | disposition home or self-care (01) ==
LOC: DI 12:28
PROVIDERS: ATTEND Physician Assistant
DX: R22.1 Localized swelling, mass and lump, neck (principal)

== ENCOUNTER 2021-06-18 11:30 | Outpatient (CLI) | payer MEDICARE, OTHER ==
--- NOTE | 2021-06-18 12:03 | XRAY Report ---
PROCEDURE: Hip w/Pelvis 2-3V LT INDICATIONS: PAIN IN LEFT HIP TECHNIQUE: AP pelvis with lateral view(s) of the left hip(s). COMPARISON: CT abdomen and pelvis 04/20/2019. AP pelvis and right hip radiographs 10/03/2018. FINDINGS: Bones: No fractures or dislocations. Mild to moderate bilateral joint space narrowing. Acetabular ro of sclerosis. Overall these findings are similar to 2019. Degenerative change at the pubic symphysis. Pelvic ring appears intact. No suspicious bony lesions. Soft tissues: The visualized bowel gas pattern is normal. No suspicious soft tissue calcifications. 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 Reviewed by: Mauricio Lopez MD on 06/18/2021 12:01 PM PST Approved by: Mauricio Lopez MD on 06/18/2021 12:01 PM PST Station ID: [id number]
== END 2021-06-18 11:31 | disposition home or self-care (01) ==
LOC: DI.S 11:30
PROVIDERS: ATTEND Specialist
DX: M25.552 Pain in left hip (principal); M16.0 Bilateral primary osteoarthritis of hip

== ENCOUNTER 2021-11-12 08:23 | Outpatient (CLI) | payer MEDICARE, OTHER ==
[2021-11-12 14:41] LABS: BASOPHILS % (AUTO) 0.2 %; EOSINOPHILS # (AUTO) 0.4 10^3/uL (0.0-0.7); EOSINOPHILS % (AUTO) 4.5 %; HCT - HEMATOCRIT 46.2 % (37.0-47.0); HGB - HEMOGLOBIN 14.5 g/dL (12.0-16.0); LYMPHOCYTES # (AUTO) 3.4 10^3/uL (1.5-3.5); LYMPHOCYTES % (AUTO) 38.6 %; MEAN CORPUSCULAR HEMOGLOBIN 28.7 pg (27.0-31.0); MEAN CORPUSCULAR HGB CONC 31.4 g/dL (32.0-36.0); MEAN CORPUSCULAR VOLUME 91.5 fL (81.0-99.0); MEAN PLATELET VOLUME 10.3 fL (7.9-10.8); MONOCYTES # (AUTO) 0.7 10^3/uL (0.0-1.0); MONOCYTES % (AUTO) 8.2 %; NEUTROPHILS # (AUTO) 4.2 10^3/uL (1.5-6.6); NEUTROPHILS % (AUTO) 48.3 %; PLT - PLATELET COUNT 220 10^3/uL (130-450); RED BLOOD COUNT 5.05 10^6/uL (4.20-5.40); RED CELL DISTRIBUTION WIDTH 13.5 % (12.0-15.0); WHITE BLOOD COUNT 8.7 x10^3/uL (4.8-10.8)
[2021-11-12 14:44] LABS: ALBUMIN 4.1 g/dL (3.2-5.5); ALBUMIN/GLOBULIN RATIO 1.3 (1.0-2.2); ALKALINE PHOSPHATASE 61 IU/L (42-121); ALT ALANINE AMINOTRANSFERASE 19 IU/L (10-60); AST ASPARTATE AMINOTRANSFERASE 21 IU/L (10-42); BUN - BLOOD UREA NITROGEN 16 mg/dL (6-20); CALCIUM 9.4 mg/dL (8.5-10.3); CARBON DIOXIDE - CO2 29 mmol/L (21-32); CHLORIDE 103 mmol/L (101-111); CHOL/HDL RATIO 3.3 (<4.4); CHOLESTEROL 157 mg/dL; CREATININE 0.8 mg/dL (0.4-1.0); GFR - MDRD 69 (>89); GLUCOSE 109 mg/dL (70-100); HDL CHOLESTEROL 48 mg/dL; LDL CHOLESTEROL,CALCULATED 86 mg/dL; LDL/HDL RATIO 1.8 (<4.4); POTASSIUM 3.6 mmol/L (3.5-5.0); SODIUM 141 mmol/L (135-145); TOTAL PROTEIN 7.3 g/dL (6.7-8.2); TRIGLYCERIDES 117 mg/dL; VLDL CHOLESTEROL 23 mg/dL
== END 2021-11-12 08:24 | disposition home or self-care (01) ==
LOC: LAB.S 08:23
PROVIDERS: ATTEND Registered Nurse
DX: E78.5 Hyperlipidemia, unspecified (principal); I10 Essential (primary) hypertension
CPT/HCPCS: 36415; 80053; 80061; 83721; 85025

== ENCOUNTER 2022-02-23 15:47 | Outpatient (CLI) | payer MEDICARE, OTHER ==
--- NOTE | 2022-02-24 12:23 | Ultrasound Report ---
PROCEDURE: Retroperitoneal INDICATIONS: RECURRENT UTI TECHNIQUE: Real-time scanning was performed of the retroperitoneal organs, with image documentation. COMPARISON: CT chest dated 01/21/2022. CT of abdomen and pelvis dated 04/20/2019 FINDINGS: Kidneys: Kidneys are normal in size. Right kidney measures 9.4 cm long; left kidney measures 9.9 cm long. Right renal cortical thickness is 1.1 cm; left renal cortical thickness is 1.4 cm. No solid masses or nephrolithiasis. Prominent column of Eladio is noted in upper pole right kidney. Mild promi nence of left renal collecting system which may represent peripelvic cysts unchanged from prior CT st udy dating back to 2019. No hydronephrosis. Bladder: Pre-void bladder volume is 358.3 mL. Post-void residual is 14.6 mL. Pre-void images demon strate no intraluminal masses or stones. On pre-void images, bilateral ureteral jets are noted with color Doppler interrogation. (Of note, ureteral jets may not be detectable in up to 25% of cases due to insufficient differences in specific gravity between ureteral and bladder urine). Miscellaneous: No free abdominal fluid. IMPRESSION: 1. Likely a prominent column of Eladio involving upper pole of right kidney. Peripelvic cyst seen in mid to lower pole left kidney. No gross solid appearing renal lesion. No hydronephrosis. 2. Normal appearing urinary bladder with small amount of postvoid residual. Reviewed by: Buster Martini MD on 02/24/2022 12:22 PM PDT Approved by: Buster Martini MD on 02/24/2022 12:22 PM PDT Station ID: [id number]
== END 2022-02-23 15:48 | disposition home or self-care (01) ==
LOC: DI 15:47
PROVIDERS: ATTEND Registered Nurse
DX: N39.0 Urinary tract infection, site not specified (principal); N28.1 Cyst of kidney, acquired

== ENCOUNTER 2023-09-15 08:00 | Outpatient (CLI) | payer MEDICARE, OTHER ==
[2023-09-15 19:56] LABS: BILIRUBIN,URINE NEGATIVE (NEGATIVE); GLUCOSE, URINE (UA) NEGATIVE (NEGATIVE); KETONES,URINE (UA) NEGATIVE (NEGATIVE); LEUKOCYTE ESTERASE, URINE LARGE (NEGATIVE); NITRITE,URINE NEGATIVE (NEGATIVE); OCCULT BLOOD,URINE LARGE (NEGATIVE); PROTEIN,URINE NEGATIVE (NEGATIVE); UROBILINOGEN,URINE 0.2 (NORMAL) E.U./dL (NORMAL)
[2023-09-15 20:07] LABS: BACTERIA,URINE Few /HPF (None Seen); CLARITY,URINE HAZY (CLEAR); SQUAMOUS EPITHELIAL CELL,UR RARE Squamous (<= Few); WBC,URINE >25 /HPF (0-5)
== END 2023-09-15 23:59 | disposition home or self-care (01) ==
LOC: LAB.S 08:00
PROVIDERS: ATTEND Emergency Medicine
DX: R30.0 Dysuria (principal)
CPT/HCPCS: 81001; 87077; 87086; 87181

== ENCOUNTER 2023-09-27 08:00 | Outpatient (CLI) | payer MEDICARE, OTHER ==
[2023-09-27 15:12] LABS: BILIRUBIN,URINE NEGATIVE (NEGATIVE); GLUCOSE, URINE (UA) NEGATIVE (NEGATIVE); KETONES,URINE (UA) NEGATIVE (NEGATIVE); LEUKOCYTE ESTERASE, URINE NEGATIVE (NEGATIVE); NITRITE,URINE NEGATIVE (NEGATIVE); OCCULT BLOOD,URINE NEGATIVE (NEGATIVE); PH,URINE 7.5 PH (5.0-7.5); PROTEIN,URINE NEGATIVE (NEGATIVE); UROBILINOGEN,URINE 0.2 (NORMAL) E.U./dL (NORMAL)
[2023-09-27 15:56] LABS: AMORPHOUS SEDIMENT,UR Rare /LPF; BACTERIA,URINE Rare /HPF (None Seen); CLARITY,URINE CLEAR (CLEAR); RBC,URINE 0-5 /HPF (0-5); SQUAMOUS EPITHELIAL CELL,UR FEW Squamous (<= Few); WBC,URINE 0-3 /HPF (0-5)
== END 2023-09-27 23:59 | disposition home or self-care (01) ==
LOC: LAB.S 08:00
PROVIDERS: ATTEND Emergency Medicine
DX: R30.0 Dysuria (principal)
CPT/HCPCS: 81001; 87086

== ENCOUNTER 2023-10-24 09:52 | Emergency (ER) | payer MEDICARE, OTHER ==
[2023-10-24 10:19] VITALS: O2SAT 98
[2023-10-24 10:32] LABS: BILIRUBIN,URINE NEGATIVE (NEGATIVE); GLUCOSE, URINE (UA) NEGATIVE (NEGATIVE); KETONES,URINE (UA) NEGATIVE (NEGATIVE); LEUKOCYTE ESTERASE, URINE MODERATE (NEGATIVE); NITRITE,URINE POSITIVE (NEGATIVE); OCCULT BLOOD,URINE MODERATE (NEGATIVE); PROTEIN,URINE NEGATIVE (NEGATIVE); UROBILINOGEN,URINE 0.2 (NORMAL) E.U./dL (NORMAL)
[2023-10-24 10:33] LABS: CLARITY,URINE SL. CLOUDY (CLEAR)
[2023-10-24 10:42] LABS: BACTERIA,URINE Rare /HPF (None Seen); SQUAMOUS EPITHELIAL CELL,UR NONE SEEN (<= Few); WBC,URINE >25 /HPF (0-5)
--- NOTE | 2023-10-24 11:26 | ED Physician Documentation ---
History of Present Illness - Stated complaint Stated Complaint: - Chief complaint Chief Complaint: General - History obtained from History obtained from: Patient - Additonal information Additional information: The patient comes to the emergency department chief complaint of urinary frequency, urgency, and dysuria, as well as right pelvic pressure that awakened her in the middle of the night last night. She denies fevers or chills. She was treated about 4 to 5 weeks ago for a urinary tract infection which at that time, revealed bacteria sensitive to Levaquin. She had initially been started o n Keflex but was changed to a 5-day course of Levaquin. She states that her symptoms resolved but that she had a Watchman procedure performed a few days ago and could not make it all the way to [facility] and ended up having some stool incontinence. She states she had to sit and it on her way to the hospital and believes that this may have triggered her current urinary tract infection. She denies any other complaints at this time. PD PAST MEDICAL HISTORY - Past Medical History Cardiovascular: None Respiratory: None Neuro: None Endocrine/Autoimmune: None GI: None PRECISION OPTICS TECHNICIAN: None : None HEENT: None Psych: None Musculoskeletal: Osteoarthritis Derm: None - Past Surgical History Past Surgical History: Yes Ortho: Other /PRECISION OPTICS TECHNICIAN: Tubal ligation Cardiovascular: Other Derm: Skin cancer surgery - Present Medications Home Medications: Ambulatory Orders Medication Instructions Recorded Confirmed Cetirizine [ZyrTEC] 10 mg PO DAILY #10 tablet 10/10/18 10/24/23 EPINEPHrine [Epinephrine] 0.3 mg IJ ONCE PRN #1 auto.injct 10/10/18 10/24/23 Famotidine 20 mg PO DAILY #10 tablet 10/10/18 10/24/23 Atorvastatin Calcium 10 mg PO QPM 04/20/19 10/24/23 methocarbamoL [Robaxin] 500 mg PO QPM PRN 04/20/19 10/24/23 Apixaban [Eliquis] 10 mg PO BID #70 tablet 04/21/19 10/24/23 Amlodipine Besylate 2.5 mg PO HS 10/24/23 10/24/23 Apixaban [Eliquis] 2.5 mg PO BID 10/24/23 10/24/23 Gabapentin [Neurontin] 100 mg PO BID 10/24/23 10/24/23 Magnesium Glycinate 240 mg PO DAILY 10/24/23 10/24/23 Metoprolol Succinate [Toprol Xl] 50 mg PO DAILY 10/24/23 10/24/23 Nitrofurantoin [Macrobid] 100 mg PO BID #14 cap 10/24/23 hydroCHLOROthiazide [Hydrodiuril] 25 mg PO DAILY 10/24/23 10/24/23 - Allergies Allergies/Adverse Reactions: Allergies Allergy/AdvReac Type Severity Reaction Status Date / Time No Known Drug Allergies Allergy Verified 10/24/23 10:18 - Social History Does the pt smoke?: No Smoking Status: Never smoker Does the pt drink ETOH?: No Does the pt have substance abuse?: No - Immunizations Immunizations are current?: Yes - POLST Patient has POLST: No PD ED PE NORMAL - Vitals Vital signs reviewed: Yes - General General: Alert and oriented X 3, No acute distress, Well developed/nourished - HEENT HEENT: Atraumatic, EOMI, Moist mucous membranes - Neck Neck: Supple, no meningeal sign - Cardiac Cardiac: RRR, No murmur - Respiratory Respiratory: No respiratory distress, Clear bilaterally - Abdomen Abdomen: Soft, Non tender, Non distended - Derm Derm: Normal color, Warm and dry, No rash - Extremities Extremities: No deformity, No edema - Neuro Neuro: Other (Grossly intact) - Psych Psych: Normal mood, Normal affect Results - Vitals Vitals: Vital Signs - 24 hr 10/24/23 10:13 Temperature 36.5 C Heart Rate 79 Respiratory 20 Rate Blood Pressure 139/70 H O2 Saturation 98 Oxygen O2 Source Room air - Labs Labs: Laboratory Tests 10/24/23 10:07 Urine Color YELLOW Urine Clarity SL. CLOUDY Urine pH 7.0 Ur Specific Eastman <=1.005 Urine Protein NEGATIVE Urine Glucose (UA) NEGATIVE Urine Ketones NEGATIVE Urine Occult Blood MODERATE H Urine Nitrite POSITIVE H Urine Bilirubin NEGATIVE Urine Urobilinogen 0.2 (NORMAL) Ur Leukocyte Esterase MODERATE H Urine RBC 6-10 H Urine WBC >25 H Ur Squamous Epith Cells NONE SEEN Urine Bacteria Rare Ur Microscopic Review INDICATED Urine Culture Comments INDICATED PD Medical Decision Making - ED course Complexity details: reviewed results, re-evaluated patient, considered differential, d/w patient ED course: The patient was worked up with a urinalysis, which came back positive for infection. She stated that although the Levaquin had worked well the last time, she preferred not to have it if there were other options, secondary to concern over tendinopathy. I did review her cultures from last time and found that the oral agents that her bacteria were sensitive to were Cipro, Levaquin, and Macrobid. I discussed with the patient that I will start her on Macrobid but that if in 4 to 5 days, she feels that her symptoms or not improving or are getting worse, then she will need to probably have her antibiotic switched. Patient is agreeable to this plan. We have discussed home management of the symptoms, as well as the usual indications for return. Departure - Departure Disposition: Home, Self Care Clinical Impression: UTI (urinary tract infection) Qualifiers: Urinary tract infection type: acute cystitis Hematuria presence: without he maturia Qualified Code(s): N30.00 - Acute cystitis without hematuria Condition: Stable Instructions: ED UTI Cystitis Female Prescriptions: Nitrofurantoin [Macrobid] 100 mg PO BID #14 cap Comments: Your urinalysis is positive here in the emergency department today. Based on your prior cultures, and your concern over Levaquin induced tendinopathy, we will treat you with Macrobid, instead. Your prior urine culture showed sensitivity to this antibiotic, as well as the Levaquin and Cipro. You have been given your first dose here and a prescription for the same has been electronically transmitted to the [facility] in [place]. You should take this every day, as directed, until the course is complete. If your symptoms are not any better at all after the next 4 to 5 days, or if you have worsening symptoms, please follow-up and the prescription will most likely need to be changed to Levaquin. In general, the risk of tendinopathy is extremely low and most patients do fine with this antibiotic. However, for now, take the Macrobid.
[2023-10-24] MEDS: NITROFURANTOIN MACRO 100 MG CAPSULE PO STA (11:29)
[2023-10-24 11:45] VITALS: BP 121/71
== END 2023-10-24 11:37 | disposition home or self-care (01) ==
LOC: ED 09:52
DX: N30.00 Acute cystitis without hematuria (principal)
CPT/HCPCS: 81001; 87086; 99283; A9270; 81003

== ENCOUNTER 2023-11-03 08:00 | Outpatient (CLI) | payer MEDICARE, OTHER | END 2023-11-03 23:59 | disposition home or self-care (01) | LOC: LAB 08:00 | PROVIDERS: ATTEND Urology | DX: R30.0 Dysuria (principal) | CPT/HCPCS: 87086 ==

== ENCOUNTER 2023-11-29 12:40 | Outpatient (CLI) | payer MEDICARE, OTHER ==
[2023-11-29 14:57] LABS: BASOPHILS % (AUTO) 0.3 %; EOSINOPHILS # (AUTO) 0.2 10^3/uL (0.0-0.7); HCT - HEMATOCRIT 43.3 % (37.0-47.0); HGB - HEMOGLOBIN 13.7 g/dL (12.0-16.0); LYMPHOCYTES # (AUTO) 3.1 10^3/uL (1.5-3.5); LYMPHOCYTES % (AUTO) 39.7 %; MEAN CORPUSCULAR HEMOGLOBIN 27.9 pg (27.0-31.0); MEAN CORPUSCULAR HGB CONC 31.6 g/dL (32.0-36.0); MEAN CORPUSCULAR VOLUME 88.2 fL (81.0-99.0); MEAN PLATELET VOLUME 10.2 fL (7.9-10.8); MONOCYTES # (AUTO) 0.7 10^3/uL (0.0-1.0); MONOCYTES % (AUTO) 8.4 %; NEUTROPHILS # (AUTO) 3.9 10^3/uL (1.5-6.6); NEUTROPHILS % (AUTO) 49.5 %; PLT - PLATELET COUNT 246 10^3/uL (130-450); RED BLOOD COUNT 4.91 10^6/uL (4.20-5.40); RED CELL DISTRIBUTION WIDTH 13.3 % (12.0-15.0); WHITE BLOOD COUNT 7.9 x10^3/uL (4.8-10.8)
[2023-11-29 15:00] LABS: INR 1.3 (0.8-1.2); PT - PROTHROMBIN TIME 14.4 secs (9.9-12.6)
[2023-11-29 15:54] LABS: CALCIUM 9.2 mg/dL (8.5-10.3); CREATININE 0.6 mg/dL (0.6-1.3); POTASSIUM 3.5 mmol/L (3.5-4.5)
== END 2023-11-29 12:41 | disposition home or self-care (01) ==
LOC: LAB.S 12:40
PROVIDERS: ATTEND Specialist
DX: Z09 Encounter for follow-up examination after completed treatment for conditions other than malignant neoplasm (principal); Z95.818 Presence of other cardiac implants and grafts
CPT/HCPCS: 36415; 80048; 85025; 85610